=== PATIENT | female | born 1955 | race Caucasian/White ===

== ENCOUNTER → 2021-06-26 | Day surgery (SDC) | payer OTHER ==
[~2021-06-26] VITALS: Ht 147.3 cm; Wt 71.0 kg
[~2021-06-26] MED LIST: BUSPIRONE HCL15 MG PO; COREG12.5 MG PO; LISINOPRIL-HCT1 EAC2 PO; MEDROL 4MG DOSEP4 MG PO; MIRTAZAPINE30 MG PO; PLAQUENIL200 MG PO; REMERON15 MG PO; TRAMADOL HCL50 MG PO; VITAMIN D325 MC1 PO; ZANTAC150 MG PO; ZOCOR40 MG PO
[2021-06-26 08:17] LABS: HCT 44.2 % (37.0-47.0); HGB 15.2 g/dl (12.5-16.0); MCHC 34.4 g/dL (32.0-36.0); MCV 87.4 fL (78.0-100.0); MPV 11.2 fL (6.0-9.5); RBC 5.06 M/uL (4.20-5.40); RDW 14.4 % (11.5-14.0); WBC 6.5 K/uL (4.0-10.5)
[2021-06-26 08:31] LABS: ALBUMIN 4.2 g/dL (3.4-5.0); BILIRUBIN - TOTAL 0.8 mg/dL (0.2-1.0); CREATININE 0.81 mg/dL (0.51-0.95); GLOBULIN (CALCULATION) 3.3 g/dL; POTASSIUM 3.4 mmol/L (3.5-5.1); TOTAL PROTEIN 7.5 g/dL (6.4-8.2)
== END | disposition home or self-care (01) ==
LOC: FAS 08:30
PROVIDERS: Surgery
DX: D50.9 Iron deficiency anemia, unspecified (principal); K92.1 Melena; K29.60 Other gastritis without bleeding; K29.80 Duodenitis without bleeding; K44.9 Diaphragmatic hernia without obstruction or gangrene; I10 Essential (primary) hypertension; E78.5 Hyperlipidemia, unspecified; E78.00 Pure hypercholesterolemia, unspecified; F41.9 Anxiety disorder, unspecified; F32.A Depression, unspecified; Z88.0 Allergy status to penicillin; Z88.5 Allergy status to narcotic agent; Z88.6 Allergy status to analgesic agent; Z88.8 Allergy status to other drugs, medicaments and biological substances; Z79.899 Other long term (current) drug therapy
CPT/HCPCS: 36415; 80053; J2250; J2704; J7120